=== PATIENT | female | born 1960 | race Caucasian/White ===

== ENCOUNTER → 2022-03-28 | Outpatient (CLI) | payer OTHER, SELFPAY ==
--- NOTE | 2022-03-28 11:12 | MRI_ITS ---
STUDY: MRI RIGHT FOREFOOT WITHOUT CONTRAST REASON FOR EXAM: Right foot pain for over a year, numbness in foot, history of cuboid fracture in 2017. TECHNIQUE: Standardized fat and water weighted pulse sequences were obtained in all 3 orthogonal planes. COMPARISON: MRI images 08/08/2017. FINDINGS: Normal metatarsophalangeal joint of the hallux. Normal tibial and fibular sesamoids, with normal sesamoids-first metatarsal articulations. There is a bipartite tibial sesamoid. Normal interphalangeal joint of the hallux. Normal proximal and distal phalanges of the great toe. Normal medial and lateral heads of the flexor hallucis brevis tendons. Normal flexor and extensor hallucis longus tendons. Normal second through fifth metatarsophalangeal (MTP) joints. Normal interphalangeal joints of the second through fifth toes. Normal proximal, middle and distal phalanges of the second through fifth toes. Normal first through fourth intermetatarsal spaces. Normal flexor and extensor tendons of the second through fifth toes. Normal metatarsals. Normal intrinsic muscles of the forefoot. There is mild subchondral cystic change at the dorsal aspect of the second tarsometatarsal articulation (inversion recovery sagittal image 15). Otherwise, unremarkable tarsometatarsal articulations. Normal Lisfranc ligament. There is mild arthrosis of the medial aspect of the navicular-cuneiform articulation with mild chondral thinning (T2 long axis image 8) and mild subchondral cystic change (inversion recovery sagittal image 18). There is interval development of a small ganglion cyst at the dorsal aspect of the fourth tarsometatarsal articulation (inversion recovery sagittal image 9; T2 long axis image 9) measuring 0.5 cm in length. There is mild distal peroneus longus tenosynovitis (inversion recovery sagittal images 11-13). There is a pressure lesion in the subcutis adipose space plantar to the first metatarsophalangeal joint (T1 sagittal images 21, 22). There is a pressure lesion in the subcutis adipose space plantar to the fifth metatarsophalangeal joint (T1 sagittal image 3). MRI/Lower Ext/No Jt/w/o IMPRESSION: Mild distal peroneus longus tenosynovitis. Mild arthrosis of the navicular-cuneiform articulation. Small ganglion cyst dorsal to the fourth tarsometatarsal articulation. Pressure lesions in the subcutis adipose space plantar to the first and fifth metatarsophalangeal joints. Otherwise, unremarkable MRI of the right forefoot. Electronically Signed: Irineo Jenkins MD at 8:17 EDT ,
== END | disposition home or self-care (01) ==
PROVIDERS: Referring Provider Podiatrist; Visit Provider Podiatrist
DX: M19.071 Primary osteoarthritis, right ankle and foot (principal); M67.40 Ganglion, unspecified site; M65.871 Other synovitis and tenosynovitis, right ankle and foot; M77.51 Other enthesopathy of right foot and ankle
CPT/HCPCS: 73718

== ENCOUNTER 2023-03-26 08:12 | Day surgery (SDC) | payer OTHER, SELFPAY ==
[2023-03-26 08:46] VITALS: BP 129/69; PULSE 69; RESP 16; TEMP 36.6; O2SAT 96; BMI 31.2
[2023-03-26 08:52] LABS: INR Fingerstick 1.1; Prothrombin Time Fingerstick 12.6 SEC (11.7-14.9)
[2023-03-26] MEDS: Lactated Ringers 1,000 ML 15 ML IV (08:58)
--- NOTE | 2023-03-26 09:28 | HP.PCM_ITS ---
History and Physical Date of Admission: 03/26/23 Date of Service: 03/19/23 MR#: [id number] Acct: [id number] Name: SHANTI FOX Rep #: [id number] : 1960 Provider: Dr. Irma Powell MD Age/Sex: 62/F Location: [facility] Status: Signed Intake Vital Signs 03/19/2308:41 Height 5 ft 1 in Weight: 170 lb BMI 32.1 BP 147/79 H Blood Pressure Location Rt brachial Position Sitting Respiration 17 Pulse 80 Pulse Source Monitor Temp 97.8 F Temp Source Temporal Pulse Oximetry (%) 98 Oxygen Delivery Method room air Intake Visit Reasons: POSITIVE COLOGUARD Chief Complaint: positive cologuard Is patient in pain?: No Allergies prochlorperazine [From Compazine] Allergy (Severe, Verified 03/19/23 08:44) Swellingcodeine Allergy (Intermediate, Verified 03/19/23 08:44) Rashdoxycycline [From Vibramycin] Allergy (Intermediate, Verified 03/19/23 08:44) RashPenicillins Allergy (Intermediate, Verified 03/19/23 08:44) Rashpropoxyphene [From Darvon] Allergy (Intermediate, Verified 03/19/23 08:44) Rashaspirin Adverse Reaction (Verified 03/19/23 08:44) Bleeding Medications acetaminophen 325 mg tablet (Tylenol) 650 mg PO Q4H PRN 01/23/23 [History Confirmed 03/19/23] levothyroxine 75 mcg tablet 75 mcg PO DAILY 01/23/23 [History Confirmed 03/19/23] warfarin 5 mg tablet 5 mg PO DAILY 01/23/23 [History Confirmed 03/19/23] PFSH Medical History (Updated 03/19/23 @ 08:41 by Marybel Diggs) Factor 5 Leiden mutation, heterozygous Hypothyroid Hypothyroidism (acquired) Surgical History History of section History of hysterectomy History of reversal of tubal ligation History of tubal ligation Family History (Updated 03/19/23 @ 08:41 by Marybel Diggs) Sister DiabetesMother Myocardial infarction Hypertension Melanoma CVA (cerebral vascular accident) Bleeding disorderFather Myocardial infarctionBrother Myocardial infarction, Onset Age: 44Other Skin cancer Social History (Updated 03/19/23 @ 08:41 by Marybel Diggs) Smoking Status: Never smoker alcohol intake: never substance use type: does not use HPI HPI HPI: 62-year-old female presents for colonoscopy due to positive Cologuard. Patient states she had a colonoscopy about 10 years ago did have some polyps and was told to come back in 10 years. Patient has bowel movements daily denies any blood, denies any family history of colon cancer, denies any chronic abdominal pain/reflux. Patient is on warfarin for factor V. ROS General General: Yes weight change; No appetite, fatigue, colon cancer, breast cancer or weakness HEENT HEENT: No difficulty swallowing, eye injury, eye surgery, swollen glands or hoar seness Endo Endocrine: Yes thyroid disease; No diabetes mellitus, thyroid cancer, Hair loss, heat intolerance or cold intolerance Skin Skin: No rash or changing moles Musc Musculoskeletal: Yes back problems; No arthritis, rheumatoid arthritis, gout or joint pain Cardio Cardiovascular: No murmur, pacemaker, heart disease, atrial fibrillation, high blood pressure, heart attack, heart stent, palpitations, shortness of breat with exertion or chest pain Psych Psychiatric: No depression, anxiety or hearing voices Resp Respiratory: No shortness of breath, No sleep apnea, No cough, No COPD, No asthma, No emphysema and No wheezing Gastro Gastrointestinal: No abdominal pain, No nausea or vomiting, No diarrhea, No constipation, No blood in stool, No acid reflux, No hemorrhoids, No ulcers, No gallbladder problem and No black,tarry stools Mahendra Hematologic: Yes blood thinners, No blood disorders, No bleeding, No anemia and Yes blood clots Neuro Neurologic: No system reviewed and no additional complaints, except as documented, No as per HPI, No abnormal gait, No abnormal hearing, No abnormal movements, No abnormal speech, No behavioral changes, No burning sensations, No confusion, No convulsions, No disequilibrium, No dizziness, No localized weakness, No frequent falls, No headache(s), No lack of coordination, No loss of vision, No memory loss, No numbness, No other visual disturbances, No radicular pain, No restless legs, No sensory deficit, No syncope, No tingling, No tremor(s), No weakness and No other Exam Const General: cooperative, healthy appearing, comfortable and no acute distress [facility] Head: normocephalic and atraumatic Neck Neck: supple Resp Effort & Inspection: normal respiratory effort Cardio Rate: regular rate GI Inspection: non-distended Palpation: soft, no hernias and nontender Skin General: no rashes or lesions noted Neuro General: CN's II-XI intact bilaterally Extrem General: normal to inspection Psych Mental Status: mental status grossly normal Attitude: cooperative Assessment and Plan Assessment and Plan (1) Positive colorectal cancer screening using Cologuard test: Status: Acute Plan We will have patient hold her Coumadin for 5 days prior to colonoscopy. I have discussed the above with the patient. I have offered the patient colonoscopy for evaluation. I have explained the risks/benefits of the procedure and described the procedure. I have discussed the risks with the patient, including but not limited to: infection, bleeding, perforation of the GI tract requiring emergency surgery, inability to complete the procedure, injury to any internal organs, complications of anesthesia, etc. - the patient understands and agrees to proceed. I have answered all the patient's questions to the patient's satisfaction and the patient has no further questions. The patient has been given instructions for the colon cleansing preparation. 1 day of clears, MiraLAX Dulcolax split prep. Irma Powell M.D. Pager: [phone] [facility] [address] [place] [address], [facility], [address] [place] [address] Office: [phone] Coding Level of Care Code Off vis,new,level 3 Diagnoses Positive colorectal cancer screening using Cologuard test R19.5 03/20/23 0900 <Electronically signed by Irma Powell MD> Date Irma Powell MD
--- NOTE | 2023-03-26 10:12 | OP.CCLET_ITS ---
03/26/2023 Tripp Shelton Re : Colonoscopy procedure for Shantelle Milligan Nikita This procedure was performed on Sunday, March 26, 2023. My impressions and recommendations are as follows: Impressions : - The entire examined colon is normal on direct and retroflexion views. - No specimens collected. Recommendations : - Discharge patient to home. - Resume previous diet. - Continue present medications. - Repeat colonoscopy in 10 years for screening purposes. My findings are described in the full procedure note, which is enclosed. If I can be of further assistance, please feel free to contact me at Doctor phone number(s): , Work: . Sincerely, MD Irma Armando MD 03/26/2023 10:12:13 AM This report has been signed electronically.
--- NOTE | 2023-03-26 10:12 | OP.COLON_ITS ---
Patient Name: Shantelle Roldan Procedure Date: 03/26/2023 9:36 AM Date of : 1960 Age: 62 Procedure: Colonoscopy Indications: Positive Cologuard test Providers: Irma Powell MD Medicines: Monitored Anesthesia Care Patient Profile: This is a 62 year old female. Last Colonoscopy: 10 years ago. Complications: No immediate complications. Procedure: Pre-Anesthesia Assessment: - Prior to the procedure, a History and Physical was performed, and patient medications and allergies were reviewed. The patient's tolerance of previous anesthesia was also reviewed. The risks and benefits of the procedure and the sedation options and risks were discussed with the patient. All questions were answered, and informed consent was obtained. Prior Anticoagulants: The patient has taken no previous anticoagulant or antiplatelet agents. ASA Grade Assessment: Per anesthesia. After reviewing the risks and benefits, the patient was deemed in satisfactory condition to undergo the procedure. After I obtained informed consent, the scope was passed under direct vision. Throughout the procedure, the patient's blood pressure, pulse, and oxygen saturations were monitored continuously. The colonoscope was introduced through the anus and advanced to the cecum, identified by the appendiceal orifice, ileocecal valve and palpation. The colonoscopy was performed without difficulty. The patient tolerated the procedure well. The quality of the bowel preparation was good. Scope In: 9:45:14 AM Scope Withdrawal Time 0 hours 7 minutes 3 seconds Scope Out: 10:07:04 AM Total Procedure Duration Time 0 hours 21 minutes 50 seconds Findings: The perianal and digital rectal examinations were normal. The entire examined colon appeared normal on direct and retroflexion views. Impression: - The entire examined colon is normal on direct and retroflexion views. - No specimens collected. Recommendation: - Discharge patient to home. - Resume previous diet. - Continue present medications. - Repeat colonoscopy in 10 years for screening purposes. Procedure Code(s): --- Professional --- 49730, PT, Colonoscopy, flexible; diagnostic, including collection of specimen(s) by brushing or washing, when performed (separate procedure) Diagnosis Code(s): --- Professional --- R19.5, Other fecal abnormalities CPT copyright 2017 [employer]. All rights reserved. The codes documented in this report are preliminary and upon informatics scientist review may be revised to meet current compliance requirements. MD Irma Armando MD 03/26/2023 10:12:13 AM This report has been signed electronically. Number of Addenda: 0 Note Initiated On: 03/26/2023 9:36 AM
[2023-03-26 10:15] VITALS: BP 122/65; BP 129/69; PULSE 67; RESP 16; TEMP 36.8; O2SAT 100
[2023-03-26 10:20] VITALS: BP 126/73; BP 129/69; PULSE 67; RESP 16; O2SAT 100
[2023-03-26 10:25] VITALS: BP 129/69; BP 136/69; PULSE 63; RESP 16; O2SAT 100
[2023-03-26 10:30] VITALS: BP 129/69; BP 146/90; PULSE 61; RESP 16; TEMP 36.4; O2SAT 100
[2023-03-26 10:48] VITALS: BP 129/69
== END 2023-03-26 11:02 | disposition home or self-care (01) ==
LOC: EN 08:14 → AC 08:17
PROVIDERS: PCP Family Medicine; Referring Provider Surgery; Visit Provider Surgery
PROC: 0DJD8ZZ Inspection of Lower Intestinal Tract, Via Natural or Artificial Opening Endoscopic (ICD-10-PCS; CPT 45378; principal; 2023-03-26 09:40)
DX: Z12.11 Encounter for screening for malignant neoplasm of colon (principal); D68.51 Activated protein C resistance; Z79.01 Long term (current) use of anticoagulants; Z79.890 Hormone replacement therapy; E03.9 Hypothyroidism, unspecified; Z86.010 Personal history of colon polyps; Z86.718 Personal history of other venous thrombosis and embolism
CPT/HCPCS: 45378; 36416; 85610; J7120